=== PATIENT | male | born 1975 | race Caucasian/White ===

== ENCOUNTER → 2022-01-25 10:51 | Outpatient (CLI) | payer BC, SELFPAY ==
--- NOTE | 2022-01-25 10:52 | DI.RAD.S_ITS ---
PROCEDURE: XR CERVICAL SPINE 2V OR 3V INDICATIONS: neck pain TECHNIQUE: Three views of the cervical spine were acquired. COMPARISON: None. FINDINGS: Bones: No acute fractures or dislocations to the C7 level. The lateral masses of C1 appear intact on the odontoid view. No suspicious bony lesions. Degenerative changes are most prominent at the C5-6 level. Soft tissues: No prevertebral soft tissue swelling. IMPRESSION: 1. No acute osseous abnormality. If the symptoms persist, consider cross sectional imaging such as MRI or CT for further assessment. 2. Focal degenerative changes at the C5-6 level. Dictated by: Devante Gardiner M.D. on 01/25/2022 at 11:58 Approved by: Devante Gardiner M.D. on 01/25/2022 at 11:59
[2022-01-25 11:28] LABS: Add Manual Diff / Slide Review NO; Basophils Absolute Auto 100 /uL (0-100); Basophils Percent Auto 1.1 % (0-2); Eosinophils Absolute Auto 100 /uL (0-450); Eosinophils Percent Auto 1.3 % (2-4); Hematocrit 42.9 % (41-53); Hemoglobin 14.7 g/dL (13.5-17.5); Lymphocytes Absolute Auto 1900 /uL (1100-4500); Lymphocytes Percent Auto 38.6 % (25-40); Mean Corpuscular HGB Conc 34.3 % (30-36); Mean Corpuscular Hemoglobin 28.2 PG (26-34); Mean Corpuscular Volume 82.1 fL (80-100); Monocytes Absolute Auto 300 /uL (0-900); Monocytes Percent Auto 5.5 % (3-14); Neutrophils Absolute Auto 2700 /uL (1500-7000); Neutrophils Percent Auto 53.5 % (50-75); Platelet Count 197 X10^3/uL (150-400); Red Blood Cell Count 5.23 X10^6/uL (4.5-5.9); Red Cell Distribution Width 13.8 % (11.6-14.8)
[2022-01-25 12:12] LABS: Thyroid Stimulating Hormone 1.47 uIU/mL (0.47-4.68)
[2022-01-25 12:14] LABS: Alanine Aminotransferase 24 IU/L (<50); Albumin 4.6 g/dL (3.5-5.0); Albumin Globulin Ratio 1.8 (1.0-2.8); Alkaline Phosphatase 67 U/L (38-126); Aspartate Aminotransferase 29 IU/L (17-59); Bilirubin Total 0.5 mg/dL (0.2-1.3); Blood Urea Nitrogen 19 mg/dL (9-20); Calcium 9.3 mg/dL (8.4-10.2); Carbon Dioxide 27 mmol/L (22-32); Chloride 103 mmol/L (98-107); Cholesterol 237 mg/dL (140-199); Estimated Glomerular Filt Rate > 60 mL/min (>60); Globulin 2.6 g/dL (1.7-4.1); Glucose 107 mg/dL (70-100); HDL Cholesterol 40 mg/dL (40-60); HEMOLYSIS < 15 (0-50); LDL Cholesterol Calculated 153 mg/dL (<100); Potassium 4.7 mmol/L (3.4-5.1); Sodium 140 mmol/L (137-145); Total Protein 7.2 g/dL (6.3-8.2); Triglycerides 219 mg/dL (35-150)
[2022-02-01 15:20] LABS: Percent Free Testosterone 2.47 % (1.50-4.20); Testosterone Free 4.47 ng/dL (5.00-21.00); Testosterone Total 180.9 ng/dL (264.0-916.0)
== END ==
PROVIDERS: Family Provider Family Medicine; PCP Internal Medicine; Referring Provider Internal Medicine; Visit Provider Internal Medicine
DX: M54.2 Cervicalgia (principal); G47.30 Sleep apnea, unspecified; R00.0 Tachycardia, unspecified; R53.83 Other fatigue; Z13.6 Encounter for screening for cardiovascular disorders; R41.3 Other amnesia
CPT/HCPCS: 36415; 72040; 80053; 80061; 84402; 84403; 84439; 84443; 85025

== ENCOUNTER → 2022-02-25 16:39 | Outpatient (CLI) | payer BC, SELFPAY ==
[2022-02-25 18:01] LABS: Prolactin 13.6 ng/mL (3.7-17.9)
[2022-02-25 19:00] LABS: Follicle Stimulating Hormone 2.66 mIU/mL; Luteinizing Hormone 1.85 mIU/mL
[2022-03-04 14:07] LABS: Percent Free Testosterone 3.94 % (1.50-4.20); Testosterone Total 175.2 ng/dL (264.0-916.0)
== END ==
PROVIDERS: Family Provider Family Medicine; PCP Internal Medicine; Referring Provider Internal Medicine; Visit Provider Internal Medicine
DX: E29.1 Testicular hypofunction (principal)
CPT/HCPCS: 36415; 83001; 83002; 84146; 84402; 84403